=== PATIENT | male | born 1980 | race African-American/Black ===

== ENCOUNTER 2021-03-22 12:42 | Observation (INO) ==
[2021-03-22] MEDS ORDERED: Naloxone 0.4 MG/ML INJ IVP PRN (17:16)
[2021-03-22] MEDS ORDERED: Perflutren Lipid Microsphere 1.3 ML in 0.9 % Sodium Chloride 8.7 ML IVP PRN (17:20)
[2021-03-22 18:07] LABS: Troponin I < 0.03 ng/mL (< 0.04)
[2021-03-22] MEDS: *HR* Heparin 5,000 UNIT/ML VIAL SQ SCH (22:07)
[2021-03-23] MEDS: *HR* Heparin 5,000 UNIT/ML VIAL SQ SCH (05:52)
[2021-03-23 07:17] LABS: Hematocrit 48.4 % (37.5-50.1); Hemoglobin 15.8 g/dL (12.9-16.9); Mean Corpuscular HGB Conc 32.6 g/dL (31.6-35.5); Mean Corpuscular Hemoglobin 29.7 pg (28.0-33.3); Mean Platelet Volume 9.6 fL (9.4-12.4); Platelet Count 270 K/mcL (140-400); Red Blood Count 5.32 M/mcL (4.19-5.50); Red Cell Distribution Width 12.6 % (11.5-14.5); White Blood Count 5.9 K/mcL (4.3-11.1)
[2021-03-23] MEDS ORDERED: Regadenoson 0.4 MG/5 ML SYRINGE IVP ONE (07:29)
[2021-03-23 07:31] LABS: INR 1.1; Prothrombin Time 12.6 Seconds (9.4-12.1)
[2021-03-23 07:40] LABS: BUN/Creatinine Ratio 11 (6-26); Blood Urea Nitrogen 17 mg/dL (6-20); Calcium 8.6 mg/dL (8.6-10.3); Carbon Dioxide 28 mEq/L (23-29); Chloride 104 mEq/L (98-107); Glucose 108 mg/dL (70-105); Magnesium 2.1 mg/dL (1.6-2.6); Osmolality,Calculated 288 (280-300); Potassium 4.6 mEq/L (3.5-5.1); Sodium 138 mEq/L (136-145); eGFR For African Americans > 60 (> 60); eGFR For Non-African Americans 50 (> 60)
[2021-03-23] MEDS ORDERED: Metoprolol XL (24 HR) Succ 25 MG TAB.ER.24H PO SCH (11:30)
[2021-03-23 12:16] LABS: Chol/HDL Ratio 3.5 (0-4.9)
[2021-03-23] MEDS: Aspirin Enteric Coated 81 MG Tablet PO SCH (12:16)
[2021-03-23 12:46] LABS: Estimated Average Glucose 128 mg/dl; Hemoglobin A1C 6.1 %
[2021-03-23] MEDS ORDERED: *HR* Heparin 5,000 UNIT/ML VIAL IVP PRN ×2 (12:50)
[2021-03-23] MEDS: Heparin 25,000UNIT/250ML 1/2NS 25,000 UNIT/250 ML IV.SOLN IVC SCH (13:59)
[2021-03-23 14:11] LABS: Hematocrit 47.8 % (37.5-50.1); Hemoglobin 15.9 g/dL (12.9-16.9); Mean Corpuscular HGB Conc 33.3 g/dL (31.6-35.5); Mean Corpuscular Hemoglobin 30.2 pg (28.0-33.3); Mean Corpuscular Volume 90.7 fL (83.0-100.0); Mean Platelet Volume 9.1 fL (9.4-12.4); Platelet Count 247 K/mcL (140-400); Red Blood Count 5.27 M/mcL (4.19-5.50); Red Cell Distribution Width 12.5 % (11.5-14.5); White Blood Count 5.2 K/mcL (4.3-11.1)
[2021-03-23 14:14] LABS: Bilirubin,Urine Negative (Negative); Blood,Urine Negative (Negative); Clarity,Urine Clear (Clear); Color,Urine Light-Yellow (Yellow); Glucose,Urine (UA) Normal (Normal); Ketones,Urine Negative (Negative); Leukocyte Esterase,Urine Negative (Negative); Nitrite,Urine Negative (Negative); PH,Urine 6.5 pH Units (5.0-8.0); Protein,Urine Negative (Neg-Trace); Specific Gravity,Urine 1.019 (1.010-1.025); Urobilinogen,Urine Normal (Normal)
[2021-03-23 14:23] LABS: Heparin anti-factor XA UFH < 0.04 IU/mL (0.30-0.70); INR 1.1; Prothrombin Time 12.8 Seconds (9.4-12.1)
[2021-03-23 14:25] LABS: Sodium, Urine 175.1 mEq/L
[2021-03-24] MEDS: Heparin 25,000UNIT/250ML 1/2NS 25,000 UNIT/250 ML IV.SOLN IVC SCH (06:22)
[2021-03-24] MEDS: Aspirin Enteric Coated 81 MG Tablet PO SCH (08:29)
[2021-03-24] MEDS ORDERED: Metoprolol XL (24 HR) Succ 25 MG TAB.ER.24H PO SCH (09:00)
[2021-03-24 09:25] LABS: Basophils % 0.7 %; Eosinophils # 0.5 K/mcL (0.0-0.6); Eosinophils % 9.5 %; Hematocrit 44.5 % (37.5-50.1); Hemoglobin 14.4 g/dL (12.9-16.9); Lymphocytes # 2.1 K/mcL (0.6-4.6); Lymphocytes % 36.2 %; Mean Corpuscular HGB Conc 32.4 g/dL (31.6-35.5); Mean Corpuscular Hemoglobin 29.6 pg (28.0-33.3); Mean Corpuscular Volume 91.6 fL (83.0-100.0); Mean Platelet Volume 9.3 fL (9.4-12.4); Monocytes # 0.5 K/mcL (0.0-1.3); Monocytes % 8.6 %; Neutrophils # 2.6 K/mcL (1.6-8.9); Platelet Count 236 K/mcL (140-400); Red Blood Count 4.86 M/mcL (4.19-5.50); Red Cell Distribution Width 12.6 % (11.5-14.5); White Blood Count 5.7 K/mcL (4.3-11.1)
[2021-03-24 09:38] LABS: INR 1.2; Prothrombin Time 12.9 Seconds (9.4-12.1)
[2021-03-24 09:41] LABS: Activated Partial Thrombo Time 105.6 Seconds (26.0-36.0)
[2021-03-24 09:48] LABS: BUN/Creatinine Ratio 14 (6-26); Blood Urea Nitrogen 21 mg/dL (6-20); Calcium 8.8 mg/dL (8.6-10.3); Carbon Dioxide 30 mEq/L (23-29); Chloride 104 mEq/L (98-107); Glucose 111 mg/dL (70-105); Osmolality,Calculated 290 (280-300); Potassium 4.4 mEq/L (3.5-5.1); Sodium 138 mEq/L (136-145); eGFR For African Americans > 60 (> 60); eGFR For Non-African Americans 51 (> 60)
[2021-03-24 10:27] VITALS: TEMP 98.3
[2021-03-24] MEDS ORDERED: *HR* FentaNYL (PF) 100 MCG/2 ML VIAL ONE (11:12)
[2021-03-24] MEDS ORDERED: Heparin 1,000 UNITS/500 mL 500 ML ONE (11:12)
[2021-03-24] MEDS ORDERED: ISOVUE-370 200 ML INFUS..BTL ONE (11:12)
[2021-03-24] MEDS ORDERED: *HR* Heparin 10,000 UNIT/10 ML VIAL ONE (11:12)
[2021-03-24] MEDS ORDERED: Nitroglycerin 1,000 MCG/5 ML VIAL IV ONE (11:12)
[2021-03-24] MEDS ORDERED: 0.9 % Sodium Chloride 1,000 ML ONE (11:12)
[2021-03-24] MEDS ORDERED: *HR* Midazolam HCl 2 MG/2 ML VIAL ONE (11:12)
[2021-03-24 13:40] VITALS: O2SAT 97
[2021-03-24 14:28] VITALS: BP 114/81; PULSE 78
== END 2021-03-24 18:08 | disposition home or self-care (01) ==
LOC: 3BNU
PROVIDERS: ADMIT Student in an Organized Health Care Education/Training Program; ATTEND Student in an Organized Health Care Education/Training Program